=== PATIENT | female | born 1960 | race Caucasian/White ===

== ENCOUNTER 2017-06-26 17:38 | Emergency (ER) | payer MEDICARE ==
--- NOTE | ~2017-06-26 | ER ---
PATIENT'S NAME: ANA CRISTINA MCKENZIE [facility] AGE: 56 Y [address] ROOM: [place] [address] LOCATION: [facility] ADMIT DATE: 06/26/2017 ER/Outpatient Report DISCHARGE DATE: 06/26/2017 FAMILY PHYSICIAN: Sagar Chu MD ATTENDING PHYSICIAN: Chase Field Time of Arrival: 1738 hours Time of Evaluation: 1750 hours CHIEF COMPLAINT: Right foot pain, possible bug bite. HISTORY OF PRESENT ILLNESS: The patient is a 56-year-old female, who presents to the emergency department today with a chief complaint of right foot pain, possible bug bite. She reports this started 4 days prior to arrival. She was started on some triamcinolone cream and some minocycline. She does have some swelling, tenderness, sharp pain and it is mild in severity. It is her right foot worse with walking. She is able to walk on it. She denies any fevers or chills. No nausea or vomiting. No diarrhea or constipation. PAST MEDICAL HISTORY: Congestive heart failure, coronary artery disease, hypertension, AICD placement, lupus. PAST SURGICAL HISTORY: AICD placement, stents x3, appendectomy, tonsillectomy, hysterectomy. SOCIAL HISTORY: The patient denies any tobacco, alcohol, or illicit drug use. ALLERGIES: SULFA. MEDICATIONS: Please see list. REVIEW OF SYSTEMS: All systems are reviewed by myself and negative with the exception of those discussed in HPI and past medical history. PHYSICAL EXAMINATION: VITAL SIGNS: Weight 64.1 kg, blood pressure 153/92, pulse 73, respiratory rate 20, temperature 96.8, and oxygen saturation 97% on room air. GENERAL: The patient is a 56-year-old female, well developed, well nourished, PATIENT'S NAME: ANA CRISTINA MCKENZIE [facility] AGE: 56 Y [address] ROOM: [place] [address] LOCATION: [facility] ADMIT DATE: 06/26/2017 ER/Outpatient Report DISCHARGE DATE: 06/26/2017 FAMILY PHYSICIAN: Sagar Chu MD ATTENDING PHYSICIAN: Chase Field in no acute distress at this time. HEENT: Head normocephalic, atraumatic. Pupils are equal, round, and reactive to light and accommodation. Extraocular motions are intact. NECK: Supple. There is no nuchal rigidity. CARDIOVASCULAR: Regular rate and rhythm. No murmurs, rubs, or gallops. LUNGS: Clear to auscultation bilaterally. No wheezes, rales, or rhonchi. ABDOMEN: Soft, nontender, and nondistended. No rebound, rigidity, or guarding. MUSCULOSKELETAL: The patient moves all 4 extremities. SKIN: The patient has an erythematous dorsal aspect of her right foot and there does appear to be lesion on the middle of her right foot in the dorsal aspect that perhaps was a bite with a little more ecchymotic-type tissue. There are petechiae or purpura. There is no evidence of rash noted on the bottom of her feet. LABORATORY DATA AND X-RAYS: Pending at the time of transfer of care. IMPRESSION: 1. Cellulitis. 2. Please see Dr. Chase's dictation. 3. Initial visit. EMERGENCY DEPARTMENT COURSE: The patient was brought back to the examination room. Seen and evaluated by myself. IV was established. Laboratory analysis and imaging were obtained as described above. The patient was given a liter of normal saline IV as well as 2 g of Rocephin IV. Laboratory analysis and imaging are pending at the time of transfer of care. I did discuss the case with Dr. Chase at shift change. He will follow up on laboratory analysis and imaging. I will make disposition. I have discussed this with the patient, she is without further question at this time. DISPOSITION: The patient is dispositioned per Dr. Chase. DO OSMAR PAPPAS/crl /[id number] d: 06/27/17 0727 t: 06/27/17 1529, OUTPATIENT REPORT
--- NOTE | ~2017-06-26 | ER ---
PATIENT'S NAME: ANA CRISTINA MCKENZIE [facility] AGE: 56 Y [address] ROOM: [place] [address] LOCATION: [facility] ADMIT DATE: 06/26/2017 ER/Outpatient Report DISCHARGE DATE: 06/26/2017 FAMILY PHYSICIAN: Sagar Chu MD ATTENDING PHYSICIAN: Chase Field HISTORY OF PRESENT ILLNESS: This patient is a 56-year-old female, who came in with what she thought was a bug bite to the dorsal mid right foot. This initially event occurred about 4 days ago. She has increasing swelling, tenderness, redness, but no red streaking. No drainage from the wound site. No other injuries. No other complaints. No fever, chills, sweats. No recent coughs, colds, or flus. The patient was initially seen by Dr. Field. See Dr. Field's dictation in regard to the chief complaint, history of present illness, past medical history, physical exam. Dr. Field transferred the patient's care over to me at shift change. He asked me to follow up with the patient's laboratory study results, x-ray study results, final diagnosis, and treatment plan. Dr. Field, did give the patient 2 g of Rocephin IV here in the emergency room along with 1 L of normal saline fluid. The patient's x-ray showed no fracture, dislocation, or any acute changes. We will review x-ray with the radiologist. LABORATORY DATA AND X-RAYS: Lactate was 1.5. Procalcitonin was less than 0.05. CMS was normal except for an elevated chloride of 111, low anion gap of 9.2, glucose 115. Point of care cardiac enzymes were normal. CRP was elevated at 3.09. Blood cultures x2 drawn, results pending. IMPRESSION: Bug bite to the right mid dorsal lateral foot with surrounding erythema. No ascending lymphangitis. This possibly could be cellulitis versus local reaction from the bug bite. PLAN: We will treat as if this is a cellulitis. The patient was given 2 g of Rocephin IV here in the emergency department. Dismissed home. Observation. Activity as tolerated. Continue present home medications and care. Elevation of right foot along with heat or ice or combination as needed, Keflex 500 mg 4 times a day for a week. The patient is to follow up with her personal physician on Thursday, Thursday of this coming week. Return to the emergency room if needed. Discussion ensued with the patient concerning my findings and recommendations, she understands. PATIENT'S NAME: ANA CRISTINA MCKENZIE [facility] AGE: 56 Y [address] ROOM: [place] [address] LOCATION: [facility] ADMIT DATE: 06/26/2017 ER/Outpatient Report DISCHARGE DATE: 06/26/2017 FAMILY PHYSICIAN: Sagar Chu MD ATTENDING PHYSICIAN: Chase Field MD SDS/modl /[id number] d: 06/27/17132 t: 06/27/17 0420, OUTPATIENT REPORT
[~2017-06-26 17:38] MED LIST: ASPIRIN (CHILDR81 MG PO; ASPIRIN325 MG PO; COLACE100 MG PO; COREG25 MG PO; COREG3.125 MG PO; DITROPAN5 MG PO; FEOSOL325 MG PO; GABAPENTIN300 MG PO; HYDROCERIN)(MI236 ML TOP; IMDUR30 MG PO; KEFLEX250 MG PO; LASIX20 MG PO; LIPITOR80 MG PO; LISINOPRIL10 MG PO; MILK OF MA400 MG/5 M PO; MIRALAX17 GM PO; NEURONTIN100 MG PO; NITROSTAT0.4 MG SL; NORVASC2.5 MG PO; NORVASC5 MG PO; PLAQUENIL200 M1 PO; PLAQUENIL200 MG PO; PLAVIX75 MG PO; PREMARIN0.45 MG PO; PRINIVIL (ZESTRI5 MG PO; PROTONIX20 MG PO; REQUIP2 MG PO; TYLENOL325 MG PO; WELLBUTRIN SR150 MG PO; XANAX0.25 MG PO; ZESTRIL2.5 MG PO
[2017-06-26 18:41] LABS: BASOPHIL % 0.5 %; EOSINOPHIL # 0.2 K/uL (0.0-0.5); EOSINOPHIL % 2.4 %; HEMATOCRIT 42.8 % (33.0-46.0); HEMOGLOBIN 14.6 g/dL (10.0-15.0); IMMATURE GRANULOCYTE % 0.2 %; LYMPHOCYTE % 16.1 %; MCH 32.4 pg (27.0-34.0); MCHC 34.1 gm/dL (32.0-36.5); MCV 94.9 fl (83.0-98.0); MONOCYTE # 0.7 K/uL (0.0-1.0); MONOCYTE % 11.3 %; MPV 10.7 fl (9.4-12.4); NEUTROPHIL # (ANC) 4.4 K/uL (1.8-7.8); NEUTROPHIL % 69.5 %; NRBC % 0 /100WBC (0-0.00); PLATELET COUNT 135 K/uL (150-450); RBC 4.51 M/uL (3.50-5.50); RDW-CV 12.9 % (11.9-14.6); WBC 6.3 K/uL (4.0-11.0)
[2017-06-26 18:48] LABS: INR - (THERAPEUTIC) 0.95 (0.92-1.07)
[2017-06-26 19:03] LABS: ALBUMIN 2.8 gm/dL (3.5-5.0); ALK PHOS 112 IU/L (33-138); ALT 26 IU/L (12-78); ANION GAP 9.2 (10.0-19.0); AST 25 IU/L (10-40); BLOOD UREA NITROGEN 20 mg/dL (6-24); CALCIUM 8.5 mg/dL (8.5-10.5); CHLORIDE 111 mMol/L (96-110); CO2 24 mMol/L (22-32); CPK 80 IU/L (21-215); CREATININE 0.8 mg/dL (0.5-1.1); POTASSIUM 4.2 mMol/L (3.7-5.1); SODIUM 140 mMol/L (135-145); TOTAL BILIRUBIN 0.6 mg/dL (0.0-1.5); TOTAL PROTEIN 7.6 g/dL (6.0-8.4)
== END 2017-06-26 19:59 | disposition disaster alternative care site (69) ==
LOC: GMED 17:38
PROVIDERS: Emergency Medicine
DX: S90.861A Insect bite (nonvenomous), right foot, initial encounter (principal); I11.0 Hypertensive heart disease with heart failure; I50.9 Heart failure, unspecified; I25.10 Atherosclerotic heart disease of native coronary artery without angina pectoris; Z90.49 Acquired absence of other specified parts of digestive tract; Z90.710 Acquired absence of both cervix and uterus; Z90.89 Acquired absence of other organs; Z88.2 Allergy status to sulfonamides; Z79.899 Other long term (current) drug therapy; Z98.890 Other specified postprocedural states; W57.XXXA Bitten or stung by nonvenomous insect and other nonvenomous arthropods, initial encounter
CPT/HCPCS: J0696; J7030